=== PATIENT | female | born 1935 | race Caucasian/White ===

== ENCOUNTER → 2016-12-12 | Outpatient (CLI) | payer MEDICARE, BC ==
[~2016-12-12] MED LIST: ALBUTEROL0.83 MG/ML IH; ALMACONE 360 M360 ML PO; ANTACID200 MG PO; ASPIRIN E.C. 8181 MG PO; BETIMOL 0.5% OPH5 ML OU; CALCIUM 600 PLU1 TAB PO; CARDURA 8MG TAB8 MG PO; CENA K20 MEQ/15 PO; COLACE 100100 MG/CAP PO; CRANBERRY450 MG PO; DEBROX OT; FENTANYL 12MCG TD; FERRO-TIME325 MG PO; IMODIUM 2MG CAPS2 MG PO; K-DUR20 MEQ PO; LASIX 40MG TABL40 MG PO; LASIX 80MG TABL80 MG PO; LEVOXYL0.1 MG PO; NORCO 325 MG-101 TAB PO; NORCO 325 MG-7.1 TAB PO; PHENERGAN25 MG RC; PRILOSEC 20MG20 MG PO; PRILOTC PO; PRINIVIL10 MG PO; QUESTRAN4 GM/9 GM PO; SENNA8.6 MG PO; TIMOLOL MALEATE5 M1 OS; VITAMIN C500 MG PO; VITAMIND3 5000 PO; VOLTAREN GEL 1%1 TU TP; XALATAN EYE DROPS OS; ZESTRIL 10MG10 MG PO; ZESTRIL 20MG TA20 MG PO
== END ==
LOC: ZLAB.STJ 10:03
DX: R19.7 Diarrhea, unspecified (principal)

== ENCOUNTER → 2016-12-24 | Outpatient (CLI) | payer MEDICARE, BC ==
[2016-12-24 12:23] LABS: TOTAL IRON BINDING CAPACITY 237 ug/dL (265-497)
== END ==
LOC: ZLAB.STJ 10:42
PROVIDERS: Internal Medicine
DX: I10 Essential (primary) hypertension (principal); D50.9 Iron deficiency anemia, unspecified

== ENCOUNTER → 2016-12-26 | Outpatient (CLI) | payer MEDICARE, BC ==
[2016-12-26 19:18] LABS: THYROID STIMULATING HORMONE 1.24 uIU/mL (0.465-4.680)
== END ==
LOC: ZLAB.STJ 12:25
PROVIDERS: Internal Medicine
DX: D50.8 Other iron deficiency anemias (principal); E03.8 Other specified hypothyroidism

== ENCOUNTER → 2017-02-14 | Outpatient (CLI) | payer MEDICARE, BC ==
[2017-02-14 10:47] LABS: PH 6 (5-8); SQUAMOUS EPITHELIAL 0-2 /hpf; URINE APPEARANCE Clear; URINE BACTERIA None Seen /hpf; URINE BILIRUBIN Negative (NEGATIVE); URINE BLOOD Negative (NEGATIVE); URINE COLOR Yellow; URINE GLUCOSE Negative (NEGATIVE); URINE KETONE Negative (NEGATIVE); URINE RBC 0-2 /hpf; URINE UROBILINOGEN Negative (NEGATIVE)
== END ==
LOC: ZLAB.STJ 10:25
PROVIDERS: Internal Medicine
DX: N18.9 Chronic kidney disease, unspecified (principal)

== ENCOUNTER → 2017-03-05 | Outpatient (CLI) | payer MEDICARE, BC ==
[2017-03-05 14:11] LABS: PH 6 (5-8); URINE APPEARANCE Cloudy; URINE BACTERIA Moderate /hpf; URINE BILIRUBIN Negative (NEGATIVE); URINE BLOOD 1+ (NEGATIVE); URINE COLOR Yellow; URINE GLUCOSE Negative (NEGATIVE); URINE KETONE Negative (NEGATIVE); URINE UROBILINOGEN Negative (NEGATIVE); URINE WBC >50 /hpf
== END ==
LOC: ZLAB.STJ 10:52
PROVIDERS: Internal Medicine
DX: N39.41 Urge incontinence (principal); Z02.89 Encounter for other administrative examinations

== ENCOUNTER → 2017-03-16 | Outpatient (CLI) | payer MEDICARE, BC ==
[2017-03-16 22:08] LABS: PH 6 (5-8); SQUAMOUS EPITHELIAL 0-2 /hpf; URINE APPEARANCE Clear; URINE BACTERIA None Seen /hpf; URINE BILIRUBIN Negative (NEGATIVE); URINE BLOOD Negative (NEGATIVE); URINE COLOR Yellow; URINE GLUCOSE Negative (NEGATIVE); URINE KETONE Negative (NEGATIVE); URINE RBC 0-2 /hpf; URINE UROBILINOGEN Negative (NEGATIVE); URINE WBC 0-2 /hpf
== END ==
LOC: ZLAB.STJ 14:55
PROVIDERS: Nurse Practitioner
DX: Z02.89 Encounter for other administrative examinations (principal)

== ENCOUNTER → 2017-04-28 | Outpatient (REF) ==
[2017-04-28 10:09] LABS: CALCIUM 8.3 mg/dL (8.4-10.2); CREATININE, serum 0.53 mg/dL (0.52-1.25); POTASSIUM 4.6 mmol/L (3.4-5.0)
== END ==
LOC: ZLAB.STJ 09:32
PROVIDERS: Internal Medicine
DX: Z01.89 Encounter for other specified special examinations (principal)

== ENCOUNTER → 2017-05-01 | Outpatient (CLI) | payer MEDICARE, BC | LOC: COL.RAD 13:13 | DX: R60.0 Localized edema (principal) ==

== ENCOUNTER 2017-05-20 19:30 | Inpatient (IN) | payer MEDICARE, BC ==
[~2017-05-20] VITALS: Ht 152.4 cm; Wt 80.9 kg
[2017-05-20 19:56] LABS: VENOUS BLOOD GAS BE 4.1 (-4-4); VENOUS BLOOD GAS SAO2 75.4 % (60-80)
[2017-05-20 19:57] LABS: VENOUS BLOOD GAS SITE VENIPUNCTURE
[2017-05-20 19:58] LABS: BASO % 0.4 % (0.0-2.0); EOS # 0.3 (0.0-0.7); EOS % 5.4 % (0-4.0); GRAN # 2.9 (1.4-6.5); GRAN % 50.8 % (42.2-75.2); LYMPH # 1.5 (1.2-3.4); LYMPH % 26.7 % (20.0-51.0); MEAN CELL VOLUME 79 fl (80.0-100.0); MEAN CORPUSCULAR HGB CONC 33 g/dl (33.0-37.0); MEAN PLATELET VOLUME 8.2 fl (7.4-10.4); MONO # 0.9 (0.1-0.6); MONO % 16.3 % (1.7-9.3); PLATELET COUNT 271 K/mm3 (130-400); REDCELL DISTRIBUTION WIDTH-CV 13.2 % (11.5-14.5); WHITE BLOOD COUNT 5.7 K/mm3 (4.8-10.8)
[2017-05-20] MEDS ORDERED: PRINIVIL10 MG PO (20:05)
[2017-05-20 20:06] LABS: HEMATOCRIT 26.1 % (37.0-47.0); HEMOGLOBIN 8.6 g/dl (12.5-16.0); MEAN CORPUSCULAR HEMOGLOBIN 26 pg (27.0-31.0)
[2017-05-20] MEDS ORDERED: CRANBERRY450 MG PO (20:07)
[2017-05-20] MEDS ORDERED: IMODIUM 2MG CAPS2 MG PO (20:08)
[2017-05-20] MEDS ORDERED: ALMACONE 360 M360 ML PO (20:09)
[2017-05-20] MEDS ORDERED: PHENERGAN25 MG RC (20:09)
[2017-05-20 20:10] LABS: CALCIUM 8.6 mg/dL (8.4-10.2); CREATININE, serum 0.58 mg/dL (0.52-1.25); POTASSIUM 4.5 mmol/L (3.4-5.0)
[2017-05-20] MEDS ORDERED: DEBROX OT (20:10)
[2017-05-20] MEDS ORDERED: FENTANYL 12MCG TD (20:11)
[2017-05-20] MEDS ORDERED: XALATAN EYE DROPS OS (20:12)
[2017-05-20] MEDS ORDERED: BETIMOL 0.5% OPH5 ML OU (20:12)
[2017-05-20] MEDS ORDERED: VOLTAREN GEL 1%1 TU TP (20:13)
[2017-05-20] MEDS ORDERED: QUESTRAN4 GM/9 GM PO (20:14)
[2017-05-20] MEDS ORDERED: ALBUTEROL0.83 MG/ML IH (20:15)
[2017-05-20] MEDS ORDERED: CALCIUM 600 PLU1 TAB PO (20:16)
[2017-05-20] MEDS ORDERED: ASPIRIN E.C. 8181 MG PO (20:16)
[2017-05-20] MEDS ORDERED: CARDURA 8MG TAB8 MG PO (20:19)
[2017-05-20] MEDS ORDERED: FERRO-TIME325 MG PO (20:19)
[2017-05-20] MEDS ORDERED: LASIX 80MG TABL80 MG PO (20:20)
[2017-05-20 20:21] LABS: TROPONIN-I 0.022 ng/mL (0.000-0.034)
[2017-05-20] MEDS ORDERED: LEVOXYL0.1 MG PO (20:21)
[2017-05-20] MEDS ORDERED: K-DUR20 MEQ PO (20:22)
[2017-05-20] MEDS ORDERED: VITAMIN C500 MG PO (20:23)
[2017-05-20] MEDS ORDERED: SENNA8.6 MG PO (20:23)
[2017-05-20] MEDS ORDERED: VITAMIND3 5000 PO (20:24)
[2017-05-20] MEDS ORDERED: NORCO 325 MG-101 TAB PO (20:25)
[2017-05-21] VITALS (683 sets, daily range): BP systolic 113–150; BP diastolic 36–83; PULSE 67–90; TEMP 97.3–98.5; O2SAT 62–100
[2017-05-21 05:54] LABS: BASO % 0.5 % (0.0-2.0); EOS # 0.4 (0.0-0.7); EOS % 6.9 % (0-4.0); GRAN # 2.8 (1.4-6.5); GRAN % 49.2 % (42.2-75.2); LYMPH # 1.7 (1.2-3.4); LYMPH % 29.4 % (20.0-51.0); MEAN CELL VOLUME 81 fl (80.0-100.0); MEAN CORPUSCULAR HGB CONC 32 g/dl (33.0-37.0); MEAN PLATELET VOLUME 8.1 fl (7.4-10.4); MONO # 0.8 (0.1-0.6); MONO % 13.6 % (1.7-9.3); PLATELET COUNT 288 K/mm3 (130-400); RED BLOOD COUNT 3.55 M/mm3 (4.10-5.30); REDCELL DISTRIBUTION WIDTH-CV 13.1 % (11.5-14.5); WHITE BLOOD COUNT 5.7 K/mm3 (4.8-10.8)
[2017-05-21 05:57] LABS: HEMATOCRIT 28.8 % (37.0-47.0); HEMOGLOBIN 9.3 g/dl (12.5-16.0); MEAN CORPUSCULAR HEMOGLOBIN 26 pg (27.0-31.0)
[2017-05-21 06:15] LABS: CALCIUM 8.6 mg/dL (8.4-10.2); CREATININE, serum 0.58 mg/dL (0.52-1.25); POTASSIUM 3.7 mmol/L (3.4-5.0)
[2017-05-21 13:23] LABS: HEMATOCRIT 29.3 % (37.0-47.0); HEMOGLOBIN 9.9 g/dl (12.5-16.0)
[2017-05-21 20:58] LABS: HEMATOCRIT 28.8 % (37.0-47.0); HEMOGLOBIN 9.5 g/dl (12.5-16.0)
[2017-05-22 02:26] VITALS: BP 117/50; PULSE 80; TEMP 98.5
[2017-05-22 07:49] LABS: BASO % 0.2 % (0.0-2.0); EOS # 0.1 (0.0-0.7); EOS % 2.3 % (0-4.0); GRAN # 3.1 (1.4-6.5); LYMPH # 1.3 (1.2-3.4); LYMPH % 24.4 % (20.0-51.0); MEAN CELL VOLUME 80 fl (80.0-100.0); MEAN CORPUSCULAR HGB CONC 33 g/dl (33.0-37.0); MEAN PLATELET VOLUME 8.4 fl (7.4-10.4); MONO # 0.7 (0.1-0.6); MONO % 13.7 % (1.7-9.3); PLATELET COUNT 280 K/mm3 (130-400); RED BLOOD COUNT 3.36 M/mm3 (4.10-5.30); REDCELL DISTRIBUTION WIDTH-CV 13.2 % (11.5-14.5); WHITE BLOOD COUNT 5.3 K/mm3 (4.8-10.8)
[2017-05-22 07:53] VITALS: BP 90/45; PULSE 63; TEMP 98.1
[2017-05-22 07:55] LABS: HEMATOCRIT 26.9 % (37.0-47.0); HEMOGLOBIN 8.8 g/dl (12.5-16.0); MEAN CORPUSCULAR HEMOGLOBIN 26 pg (27.0-31.0)
[2017-05-22 08:00] LABS: CALCIUM 8.4 mg/dL (8.4-10.2); CREATININE, serum 0.63 mg/dL (0.52-1.25); POTASSIUM 3.4 mmol/L (3.4-5.0)
[2017-05-22 11:45] VITALS: BP 122/58; PULSE 70; TEMP 98
[2017-05-22 17:37] VITALS: BP 136/64; PULSE 82; TEMP 98.7
[2017-05-22 19:51] VITALS: BP 102/49; PULSE 79; TEMP 98.5
[2017-05-22 23:31] VITALS: BP 128/60; PULSE 76; TEMP 99.2
[2017-05-23 03:30] VITALS: BP 111/49; PULSE 74; TEMP 98.6
[2017-05-23 07:48] VITALS: BP 112/42; PULSE 74; TEMP 98.2
[2017-05-23 09:29] LABS: HEMOGLOBIN 8.5 g/dl (12.5-16.0)
[2017-05-23 09:43] LABS: CREATININE, serum 0.6 mg/dL (0.52-1.25); POTASSIUM 3.6 mmol/L (3.4-5.0)
[2017-05-23 11:49] VITALS: BP 115/71; PULSE 64; TEMP 98
[2017-05-23 15:54] VITALS: BP 116/51; PULSE 67; TEMP 98.2
[2017-05-23 20:40] VITALS: BP 142/63; PULSE 75; TEMP 98.2
[2017-05-24 00:39] VITALS: BP 129/79; PULSE 70; TEMP 98.5
[2017-05-24 07:54] VITALS: BP 123/75; PULSE 65; TEMP 97.8
[2017-05-24 11:04] VITALS: BP 126/51; PULSE 61; TEMP 97.9
[2017-05-24 11:24] LABS: BASO % 0.3 % (0.0-2.0); EOS # 0.3 (0.0-0.7); EOS % 5.2 % (0-4.0); GRAN # 3.6 (1.4-6.5); GRAN % 58.1 % (42.2-75.2); LYMPH # 1.5 (1.2-3.4); LYMPH % 24.4 % (20.0-51.0); MEAN CELL VOLUME 80 fl (80.0-100.0); MEAN CORPUSCULAR HGB CONC 33 g/dl (33.0-37.0); MEAN PLATELET VOLUME 8.2 fl (7.4-10.4); MONO # 0.7 (0.1-0.6); MONO % 11.7 % (1.7-9.3); PLATELET COUNT 285 K/mm3 (130-400); RED BLOOD COUNT 3.52 M/mm3 (4.10-5.30); REDCELL DISTRIBUTION WIDTH-CV 13.2 % (11.5-14.5); WHITE BLOOD COUNT 6.1 K/mm3 (4.8-10.8)
[2017-05-24 11:30] LABS: HEMOGLOBIN 9.3 g/dl (12.5-16.0); MEAN CORPUSCULAR HEMOGLOBIN 26 pg (27.0-31.0)
[2017-05-24 11:34] LABS: CALCIUM 8.2 mg/dL (8.4-10.2); CREATININE, serum 0.52 mg/dL (0.52-1.25); POTASSIUM 4.5 mmol/L (3.4-5.0)
[2017-05-24 12:22] VITALS: BP 126/51; PULSE 61; TEMP 97.9
[2017-05-24] MEDS ORDERED: PRILOTC PO (12:36)
[2017-05-28 23:05] LABS: HELICOBACTER PYLORI STOOL AG Negative (Negative)
== END 2017-05-24 13:27 | DRG 378 ==
LOC: COL.ER 19:30 → MEDICAL 23:17 → ICU 23:17 → MEDICAL 05-21 20:50
PROVIDERS: Emergency Medicine; Family Medicine; Internal Medicine; Internal Medicine Gastroenterology; Nurse Practitioner Family
PROC: 0W3P8ZZ Control Bleeding in Gastrointestinal Tract, Via Natural or Artificial Opening Endoscopic (ICD-10-PCS; principal; 2017-05-21 13:00)
DX: K26.4 Chronic or unspecified duodenal ulcer with hemorrhage (principal); D62 Acute posthemorrhagic anemia; I13.0 Hypertensive heart and chronic kidney disease with heart failure and stage 1 through stage 4 chronic kidney disease, or unspecified chronic kidney disease; I50.32 Chronic diastolic (congestive) heart failure; Z66 Do not resuscitate; E87.1 Hypo-osmolality and hyponatremia; B37.49 Other urogenital candidiasis; N18.9 Chronic kidney disease, unspecified; J01.00 Acute maxillary sinusitis, unspecified; G89.29 Other chronic pain; B35.1 Tinea unguium
CPT/HCPCS: 99232-AI; 99233-AI; 99239; A4315; C9113; G8987-GO; G8988-GO; J1940; J2250; J3010; J3480; J7030; Q9967

== ENCOUNTER → 2017-05-25 | Outpatient (REF) ==
[2017-05-25 14:50] LABS: CALCIUM 8.4 mg/dL (8.4-10.2); CREATININE, serum 0.85 mg/dL (0.52-1.25); POTASSIUM 4.7 mmol/L (3.4-5.0)
== END ==
LOC: ZLAB.STJ 14:23
PROVIDERS: Internal Medicine
DX: Z01.89 Encounter for other specified special examinations (principal)

== ENCOUNTER 2017-05-26 10:25 | Inpatient (IN) | payer MEDICARE, BC ==
[~2017-05-26] VITALS: Wt 88.5 kg
[~2017-05-26 10:25] MED LIST changes: -ANTACID200 MG PO; -CENA K20 MEQ/15 PO; -COLACE 100100 MG/CAP PO; -LASIX 40MG TABL40 MG PO; -NORCO 325 MG-7.1 TAB PO; -PRILOSEC 20MG20 MG PO; -TIMOLOL MALEATE5 M1 OS; -ZESTRIL 10MG10 MG PO; -ZESTRIL 20MG TA20 MG PO
[2017-05-26 11:25] LABS: MEAN CELL VOLUME 78 fl (80.0-100.0); MEAN CORPUSCULAR HGB CONC 34 g/dl (33.0-37.0); MEAN PLATELET VOLUME 8.4 fl (7.4-10.4); PLATELET COUNT 273 K/mm3 (130-400); RED BLOOD COUNT 3.29 M/mm3 (4.10-5.30); REDCELL DISTRIBUTION WIDTH-CV 12.7 % (11.5-14.5); WHITE BLOOD COUNT 6.6 K/mm3 (4.8-10.8)
[2017-05-26 11:28] LABS: HEMATOCRIT 25.7 % (37.0-47.0); HEMOGLOBIN 8.7 g/dl (12.5-16.0); MEAN CORPUSCULAR HEMOGLOBIN 26 pg (27.0-31.0)
[2017-05-26] MEDS ORDERED: QUESTRAN4 GM/9 GM PO (11:28)
[2017-05-26 11:29] LABS: ADD PATHOLOGY DIFF REVIEW NO; TOTAL CELLS COUNTED 0
[2017-05-26] MEDS ORDERED: ASPIRIN E.C. 8181 MG PO (11:29)
[2017-05-26] MEDS ORDERED: COLACE 100100 MG/CAP PO (11:31)
[2017-05-26] MEDS ORDERED: CARDURA 8MG TAB8 MG PO (11:32)
[2017-05-26 11:35] LABS: HYALINE CAST >12 /lpf; PH 5 (5-8); URINE APPEARANCE Turbid; URINE BACTERIA Occasional /hpf; URINE BILIRUBIN Negative (NEGATIVE); URINE BLOOD 3+ (NEGATIVE); URINE COLOR Amber; URINE GLUCOSE Negative (NEGATIVE); URINE KETONE Trace (NEGATIVE); URINE RBC >50 /hpf; URINE UROBILINOGEN Negative (NEGATIVE)
[2017-05-26 11:39] LABS: ADJUSTED CALCIUM 8.9 mg/dL (8.4-10.2); ALBUMIN 2.8 gm/dL (3.5-5.0); BILIRUBIN,TOTAL 1.1 mg/dL (0.0-1.0); C-REACTIVE PROTEIN 5.8 mg/dL (0.0-0.9); CALCIUM 7.9 mg/dL (8.4-10.2); CREATININE, serum 0.59 mg/dL (0.52-1.25); POTASSIUM 4.8 mmol/L (3.4-5.0); TOTAL PROTEIN 5.8 gm/dL (6.4-8.2)
[2017-05-26 11:43] LABS: URINE WBC >50 /hpf
[2017-05-26] MEDS ORDERED: NORCO 325 MG-7.1 TAB PO ×2 (11:51)
[2017-05-26] MEDS ORDERED: ZESTRIL 10MG10 MG PO (11:53)
[2017-05-26] MEDS ORDERED: CRANBERRY450 MG PO (11:54)
[2017-05-26] MEDS ORDERED: IMODIUM 2MG CAPS2 MG PO (12:09)
[2017-05-26] MEDS ORDERED: ANTACID200 MG PO (12:09)
[2017-05-26] MEDS ORDERED: ALMACONE 360 M360 ML PO (12:10)
[2017-05-26] MEDS ORDERED: PHENERGAN25 MG RC (12:11)
[2017-05-26] MEDS ORDERED: PRILOSEC 20MG20 MG PO (12:12)
[2017-05-26] MEDS ORDERED: DEBROX OT (12:12)
[2017-05-26 15:10] LABS: MAGNESIUM 1.3 mg/dL (1.6-2.3)
[2017-05-26 15:32] VITALS: BP 114/36; PULSE 83; TEMP 98.7
[2017-05-26 15:59] VITALS: BP 116/50; PULSE 84; TEMP 98
[2017-05-26 21:40] VITALS: BP 122/74; PULSE 70; TEMP 98
[2017-05-26 22:44] LABS: THYROID STIMULATING HORMONE 3.16 uIU/mL (0.465-4.680)
[2017-05-27 04:24] VITALS: BP 112/42; PULSE 68; TEMP 98.2
[2017-05-27 09:42] LABS: CALCIUM 8.1 mg/dL (8.4-10.2); CREATININE, serum 0.55 mg/dL (0.52-1.25); POTASSIUM 4.3 mmol/L (3.4-5.0)
[2017-05-27 12:59] VITALS: BP 111/55; PULSE 79; TEMP 98.4
[2017-05-27 15:35] LABS: BASO % 0.4 % (0.0-2.0); EOS # 0.3 (0.0-0.7); EOS % 5.9 % (0-4.0); GRAN # 2.7 (1.4-6.5); LYMPH # 0.9 (1.2-3.4); LYMPH % 19.9 % (20.0-51.0); MEAN CELL VOLUME 80 fl (80.0-100.0); MEAN CORPUSCULAR HGB CONC 34 g/dl (33.0-37.0); MEAN PLATELET VOLUME 8.9 fl (7.4-10.4); MONO # 0.6 (0.1-0.6); MONO % 13.6 % (1.7-9.3); PLATELET COUNT 289 K/mm3 (130-400); RED BLOOD COUNT 3.14 M/mm3 (4.10-5.30); WHITE BLOOD COUNT 4.6 K/mm3 (4.8-10.8)
[2017-05-27 15:41] VITALS: BP 118/57; PULSE 77; TEMP 98.4
[2017-05-27 15:44] LABS: HEMATOCRIT 25.1 % (37.0-47.0); HEMOGLOBIN 8.4 g/dl (12.5-16.0); MEAN CORPUSCULAR HEMOGLOBIN 27 pg (27.0-31.0)
[2017-05-27 15:56] LABS: MAGNESIUM 2.2 mg/dL (1.6-2.3)
[2017-05-27] MEDS ORDERED: XALATAN EYE DROPS OS (16:06)
[2017-05-27] MEDS ORDERED: TIMOLOL MALEATE5 M1 OS (16:06)
[2017-05-27 19:24] VITALS: BP 134/45; PULSE 94; TEMP 98.5
[2017-05-27 22:49] VITALS: BP 153/57; PULSE 73; TEMP 98.3
[2017-05-28 02:35] VITALS: BP 124/45; PULSE 62; TEMP 98.5
[2017-05-28 07:02] LABS: BASO % 0.5 % (0.0-2.0); EOS # 0.3 (0.0-0.7); EOS % 7.2 % (0-4.0); GRAN # 2.2 (1.4-6.5); HEMATOCRIT 23.3 % (37.0-47.0); HEMOGLOBIN 7.6 g/dl (12.5-16.0); LYMPH # 1.1 (1.2-3.4); LYMPH % 24.9 % (20.0-51.0); MEAN CELL VOLUME 80 fl (80.0-100.0); MEAN CORPUSCULAR HEMOGLOBIN 26 pg (27.0-31.0); MEAN CORPUSCULAR HGB CONC 33 g/dl (33.0-37.0); MEAN PLATELET VOLUME 8.6 fl (7.4-10.4); MONO # 0.7 (0.1-0.6); MONO % 16.2 % (1.7-9.3); PLATELET COUNT 295 K/mm3 (130-400); WHITE BLOOD COUNT 4.3 K/mm3 (4.8-10.8)
[2017-05-28 07:15] LABS: CALCIUM 7.8 mg/dL (8.4-10.2); CREATININE, serum 0.48 mg/dL (0.52-1.25); POTASSIUM 3.9 mmol/L (3.4-5.0)
[2017-05-28 07:53] VITALS: BP 130/44; PULSE 72; TEMP 98.1
[2017-05-28 12:15] VITALS: BP 127/70; PULSE 68; TEMP 97.9
[2017-05-28 15:42] VITALS: BP 146/60; PULSE 71; TEMP 98.5
[2017-05-28 20:30] VITALS: BP 131/59; PULSE 70; TEMP 98.2
[2017-05-28 23:31] VITALS: BP 135/55; PULSE 84; TEMP 98.4
[2017-05-29 03:32] VITALS: BP 135/61; PULSE 73; TEMP 98.7
[2017-05-29 07:29] LABS: BASO % 0.4 % (0.0-2.0); EOS # 0.4 (0.0-0.7); EOS % 7.5 % (0-4.0); GRAN # 2.3 (1.4-6.5); GRAN % 48.3 % (42.2-75.2); LYMPH # 1.3 (1.2-3.4); LYMPH % 27.3 % (20.0-51.0); MEAN CELL VOLUME 82 fl (80.0-100.0); MEAN CORPUSCULAR HGB CONC 32 g/dl (33.0-37.0); MEAN PLATELET VOLUME 8.4 fl (7.4-10.4); MONO # 0.8 (0.1-0.6); MONO % 16.3 % (1.7-9.3); PLATELET COUNT 336 K/mm3 (130-400); RED BLOOD COUNT 3.11 M/mm3 (4.10-5.30); REDCELL DISTRIBUTION WIDTH-CV 13.4 % (11.5-14.5); WHITE BLOOD COUNT 4.7 K/mm3 (4.8-10.8)
[2017-05-29 07:34] LABS: HEMATOCRIT 25.4 % (37.0-47.0); HEMOGLOBIN 8.2 g/dl (12.5-16.0); MEAN CORPUSCULAR HEMOGLOBIN 26 pg (27.0-31.0)
[2017-05-29 07:43] LABS: CALCIUM 7.9 mg/dL (8.4-10.2); CREATININE, serum 0.43 mg/dL (0.52-1.25); POTASSIUM 3.4 mmol/L (3.4-5.0)
[2017-05-29 08:47] VITALS: BP 115/59; PULSE 75; TEMP 98.4
[2017-05-29 12:20] VITALS: BP 154/80; PULSE 70; TEMP 97.9
[2017-05-29 15:28] VITALS: BP 143/77; PULSE 55; TEMP 98.2
[2017-05-29 20:01] VITALS: BP 137/74; PULSE 77; TEMP 98.5
[2017-05-29 22:50] VITALS: BP 145/62; PULSE 70; TEMP 98.6
[2017-05-30 03:33] VITALS: BP 141/59; PULSE 73; TEMP 98.5
[2017-05-30 07:00] LABS: BASO % 0.4 % (0.0-2.0); EOS # 0.3 (0.0-0.7); EOS % 5.8 % (0-4.0); GRAN # 2.5 (1.4-6.5); GRAN % 50.1 % (42.2-75.2); LYMPH # 1.3 (1.2-3.4); LYMPH % 25.3 % (20.0-51.0); MEAN CELL VOLUME 82 fl (80.0-100.0); MEAN CORPUSCULAR HGB CONC 33 g/dl (33.0-37.0); MEAN PLATELET VOLUME 8.6 fl (7.4-10.4); MONO # 0.9 (0.1-0.6); PLATELET COUNT 356 K/mm3 (130-400); RED BLOOD COUNT 3.25 M/mm3 (4.10-5.30); REDCELL DISTRIBUTION WIDTH-CV 13.5 % (11.5-14.5)
[2017-05-30 07:02] LABS: HEMATOCRIT 26.5 % (37.0-47.0); HEMOGLOBIN 8.6 g/dl (12.5-16.0); MEAN CORPUSCULAR HEMOGLOBIN 26 pg (27.0-31.0)
[2017-05-30 07:18] LABS: CALCIUM 8.1 mg/dL (8.4-10.2); CREATININE, serum 0.44 mg/dL (0.52-1.25); POTASSIUM 3.8 mmol/L (3.4-5.0)
[2017-05-30 08:15] VITALS: BP 133/60; PULSE 64; TEMP 97.8
[2017-05-30 11:59] VITALS: BP 151/71; PULSE 75
[2017-05-30 15:23] VITALS: BP 151/67; PULSE 81; TEMP 98.2
[2017-05-30 20:44] VITALS: BP 153/67; PULSE 83; TEMP 98.4
[2017-05-31] VITALS (9 sets, daily range): BP systolic 134–153; BP diastolic 50–85; PULSE 71–87; TEMP 97.7–98.7
[2017-06-01 04:05] VITALS: BP 156/60; PULSE 67; TEMP 98.4
[2017-06-01 08:18] VITALS: BP 152/68; PULSE 71; TEMP 98.7
[2017-06-01] MEDS ORDERED: LASIX 40MG TABL40 MG PO (08:57)
[2017-06-01] MEDS ORDERED: ZESTRIL 20MG TA20 MG PO (08:58)
[2017-06-01] MEDS ORDERED: CENA K20 MEQ/15 PO (09:29)
[2017-06-01 10:53] LABS: BASO % 0.6 % (0.0-2.0); EOS # 0.2 (0.0-0.7); EOS % 4.7 % (0-4.0); GRAN # 2.8 (1.4-6.5); GRAN % 54.6 % (42.2-75.2); LYMPH # 1.3 (1.2-3.4); LYMPH % 25.9 % (20.0-51.0); MEAN CELL VOLUME 81 fl (80.0-100.0); MEAN CORPUSCULAR HGB CONC 33 g/dl (33.0-37.0); MEAN PLATELET VOLUME 8.5 fl (7.4-10.4); MONO # 0.7 (0.1-0.6); MONO % 13.8 % (1.7-9.3); PLATELET COUNT 403 K/mm3 (130-400); RED BLOOD COUNT 3.32 M/mm3 (4.10-5.30); REDCELL DISTRIBUTION WIDTH-CV 13.7 % (11.5-14.5); WHITE BLOOD COUNT 5.1 K/mm3 (4.8-10.8)
[2017-06-01 10:54] LABS: HEMATOCRIT 26.9 % (37.0-47.0); HEMOGLOBIN 8.8 g/dl (12.5-16.0); MEAN CORPUSCULAR HEMOGLOBIN 27 pg (27.0-31.0)
[2017-06-01 10:57] LABS: CALCIUM 8.2 mg/dL (8.4-10.2); CREATININE, serum 0.45 mg/dL (0.52-1.25); MAGNESIUM 1.8 mg/dL (1.6-2.3); POTASSIUM 3.2 mmol/L (3.4-5.0)
== END 2017-06-01 16:10 | DRG 640 ==
LOC: COL.ER 10:25 → MEDICAL 11:56
PROVIDERS: Family Medicine; Internal Medicine; Physician Assistant
DX: E87.1 Hypo-osmolality and hyponatremia (principal); K26.4 Chronic or unspecified duodenal ulcer with hemorrhage; N39.0 Urinary tract infection, site not specified; B96.20 Unspecified Escherichia coli [E. coli] as the cause of diseases classified elsewhere; I10 Essential (primary) hypertension; D64.9 Anemia, unspecified; G89.29 Other chronic pain; E83.42 Hypomagnesemia; E87.6 Hypokalemia; E86.0 Dehydration
CPT/HCPCS: 99223-AI; 99232-AI; 99239; C9113; J0696; J1940; J2405; J2916; J3475; J3480; J7030

== ENCOUNTER → 2017-06-05 | Outpatient (CLI) | payer MEDICARE, BC ==
[~2017-06-05] MED LIST changes: +ANTACID200 MG PO; +CENA K20 MEQ/15 PO; +COLACE 100100 MG/CAP PO; +LASIX 40MG TABL40 MG PO; +NORCO 325 MG-7.1 TAB PO; +PRILOSEC 20MG20 MG PO; +TIMOLOL MALEATE5 M1 OS; +ZESTRIL 10MG10 MG PO; +ZESTRIL 20MG TA20 MG PO
[2017-06-05 19:59] LABS: ADJUSTED CALCIUM 9.7 mg/dL (8.4-10.2); ALBUMIN 2.4 gm/dL (3.5-5.0); BILIRUBIN,TOTAL 0.3 mg/dL (0.0-1.0); CALCIUM 8.4 mg/dL (8.4-10.2); CREATININE, serum 0.52 mg/dL (0.52-1.25); MAGNESIUM 1.9 mg/dL (1.6-2.3); POTASSIUM 4.6 mmol/L (3.4-5.0); TOTAL PROTEIN 5.2 gm/dL (6.4-8.2)
== END ==
LOC: ZLAB.STJ 19:00
PROVIDERS: Internal Medicine
DX: F50.9 Eating disorder, unspecified (principal)

== ENCOUNTER → 2017-06-06 | Outpatient (REF) ==
[2017-06-06 11:16] LABS: BASO % 0.5 % (0.0-2.0); EOS # 0.3 (0.0-0.7); EOS % 4.7 % (0-4.0); GRAN # 3.3 (1.4-6.5); GRAN % 57.7 % (42.2-75.2); LYMPH # 1.5 (1.2-3.4); LYMPH % 26.1 % (20.0-51.0); MEAN CELL VOLUME 84 fl (80.0-100.0); MEAN CORPUSCULAR HGB CONC 31 g/dl (33.0-37.0); MEAN PLATELET VOLUME 8.4 fl (7.4-10.4); MONO # 0.6 (0.1-0.6); MONO % 10.5 % (1.7-9.3); PLATELET COUNT 340 K/mm3 (130-400); RED BLOOD COUNT 3.39 M/mm3 (4.10-5.30); REDCELL DISTRIBUTION WIDTH-CV 14.9 % (11.5-14.5); WHITE BLOOD COUNT 5.7 K/mm3 (4.8-10.8)
[2017-06-06 11:19] LABS: HEMATOCRIT 28.4 % (37.0-47.0); HEMOGLOBIN 8.9 g/dl (12.5-16.0); MEAN CORPUSCULAR HEMOGLOBIN 26 pg (27.0-31.0)
== END ==
LOC: ZLAB.STJ 10:59
PROVIDERS: Internal Medicine
DX: Z01.89 Encounter for other specified special examinations (principal)